=== PATIENT | female | born 1960 | race Caucasian/White ===

== ENCOUNTER → 2020-08-13 | Outpatient (CLI) | payer OTHER ==
[~2020-08-13] MED LIST: CARDIZEM CD120 MG PO
== END ==
LOC: LAB 09:53
DX: D89.89 Other specified disorders involving the immune mechanism, not elsewhere classified (principal); M25.50 Pain in unspecified joint; R76.8 Other specified abnormal immunological findings in serum; R53.83 Other fatigue
CPT/HCPCS: 36415; 84439; 84443

== ENCOUNTER 2021-01-08 09:01 | Emergency (ER) | payer OTHER ==
[2021-01-08 09:46] LABS: HEMOGLOBIN 13.7 gm/dl (12.3-15.3); RED BLOOD COUNT 4.85 M/UL (4.00-5.10); WHITE BLOOD COUNT 7.7 K/UL (4.5-11.0)
[2021-01-08 10:17] LABS: BUN/CREATININE RATIO 19 (0-10)
[2021-01-08] MEDS ORDERED: CARDIZEM CD120 MG PO (14:08)
== END 2021-01-08 14:21 | disposition home or self-care (01) ==
LOC: ER1 09:01
PROVIDERS: Physician Assistant
DX: R00.2 Palpitations (principal); E78.5 Hyperlipidemia, unspecified; I47.1 Supraventricular tachycardia; R73.9 Hyperglycemia, unspecified; Z79.82 Long term (current) use of aspirin; Z79.899 Other long term (current) drug therapy; Z90.49 Acquired absence of other specified parts of digestive tract
CPT/HCPCS: 71045; 80053; 82550; 82553; 83735; 83874; 84439; 84443; 84484; 85025; 93005; 99285; J0153

== ENCOUNTER → 2021-02-17 | Outpatient (CLI) | payer OTHER ==
[~2021-02-17] MED LIST changes: +ASPIRIN CHEWABL81 MG PO; +PEPCID20 MG PO
== END ==
LOC: CATH 09:57
DX: I49.9 Cardiac arrhythmia, unspecified (principal); R07.9 Chest pain, unspecified
CPT/HCPCS: ECHO; 93306

== ENCOUNTER → 2021-02-19 | Outpatient (CLI) | payer OTHER ==
[2021-02-19 09:04] LABS: HEMOGLOBIN 13.4 gm/dl (12.3-15.3); RED BLOOD COUNT 4.69 M/UL (4.00-5.10); WHITE BLOOD COUNT 5.6 K/UL (4.5-11.0)
[2021-02-19 09:21] LABS: BUN/CREATININE RATIO 16 (0-10)
== END ==
LOC: LAB 08:18
PROVIDERS: Internal Medicine Cardiovascular Disease
DX: R00.2 Palpitations (principal); R06.02 Shortness of breath; I47.1 Supraventricular tachycardia
CPT/HCPCS: 36415; 80048; 85025

== ENCOUNTER 2021-02-21 09:51 | Outpatient (CLI) | payer OTHER ==
[~2021-02-21] VITALS: Ht 160 cm; Wt 90.7 kg
[~2021-02-21 09:51] MED LIST changes: -ASPIRIN CHEWABL81 MG PO; -PEPCID20 MG PO
[2021-02-21] MEDS ORDERED: PEPCID20 MG PO ×2 (10:29→10:30)
[2021-02-21] MEDS ORDERED: ASPIRIN CHEWABL81 MG PO (10:29)
== END 2021-02-22 10:45 | disposition home or self-care (01) ==
LOC: CATH 09:51 → PROG CARE 16:44 → CATH 02-22 10:45
DX: I47.1 Supraventricular tachycardia (principal); I10 Essential (primary) hypertension; F41.9 Anxiety disorder, unspecified; M19.90 Unspecified osteoarthritis, unspecified site; E78.5 Hyperlipidemia, unspecified; K21.9 Gastro-esophageal reflux disease without esophagitis; G47.30 Sleep apnea, unspecified; Z79.82 Long term (current) use of aspirin; Z79.899 Other long term (current) drug therapy
CPT/HCPCS: 93613; 93621; 93623; 99152; 99153; C1730; C1733; C1766; J1200; J1644; J2250; J3010; J7040; J7050

== ENCOUNTER → 2021-11-27 | Outpatient (CLI) | payer OTHER ==
[~2021-11-27] MED LIST changes: +ASPIRIN CHEWABL81 MG PO; +MULTI-VITAMIN1 EACH PO; +PEPCID20 MG PO; +TUMERIC
[2021-11-27 10:44] LABS: HEMOGLOBIN 12.7 gm/dl (12.3-15.3); RED BLOOD COUNT 4.42 M/UL (4.00-5.10); WHITE BLOOD COUNT 8.7 K/UL (4.5-11.0)
[2021-11-27 11:17] LABS: BUN/CREATININE RATIO 18 (0-10)
== END ==
LOC: EDSTATUS 10:00 → OPSV2 10:00
PROVIDERS: Orthopaedic Surgery
DX: Z01.818 Encounter for other preprocedural examination (principal); M17.12 Unilateral primary osteoarthritis, left knee
CPT/HCPCS: 71046; 80048; 85027; 93005

== ENCOUNTER → 2021-12-08 | Outpatient (CLI) | payer OTHER | LOC: LBRF 14:03 | DX: Z20.822 Contact with and (suspected) exposure to COVID-19 (principal) | CPT/HCPCS: U0003 ==

== ENCOUNTER → 2021-12-11 | Day surgery (SDC) | payer OTHER ==
[~2021-12-11] VITALS: Ht 160 cm; Wt 95.7 kg
[~2021-12-11] MED LIST changes: +ASPIRIN EC81 MG PO; +CYCLOBENZAPRINE10 MG PO; +ENDOCET 7.5-321 EACH PO; -TUMERIC; +TUMERIC PO; +VIACTIV 650 MG1 EACH PO; +ZOFRAN 4 MG TAB4 MG PO
== END | disposition home or self-care (01) ==
LOC: OR 06:05 → EDSTATUS 07:30 → OR 07:30
DX: M17.12 Unilateral primary osteoarthritis, left knee (principal); M25.762 Osteophyte, left knee; K21.9 Gastro-esophageal reflux disease without esophagitis; Z20.822 Contact with and (suspected) exposure to COVID-19
CPT/HCPCS: 73560; 97116; 97161; 97165; C1713; C1776; J0171; J0690; J1100; J1885; J2250; J2274; J2370; J2704; J2795; J3010; J3370; J7120

== ENCOUNTER → 2021-12-23 | Outpatient (CLI) | payer OTHER | LOC: KOH-I 10:44 | DX: G56.03 Carpal tunnel syndrome, bilateral upper limbs (principal); M54.9 Dorsalgia, unspecified; M47.812 Spondylosis without myelopathy or radiculopathy, cervical region; M51.37 Other intervertebral disc degeneration, lumbosacral region; G89.29 Other chronic pain | CPT/HCPCS: 73100 ==